=== PATIENT | male | born 1950 | race Caucasian/White ===

== ENCOUNTER 2023-12-24 05:30 | Emergency (ER) | payer MEDICARE, SELFPAY ==
--- NOTE | 2023-12-24 05:36 | ED.UPPEXIN ---
HPI - Extremity Injury (Upper) General Chief Complaint: Fall Stated Complaint: left wrist injury Time Seen by Provider: 12/24/23 05:30 History of Present Illness HPI narrative: 73-year-old male presents for evaluation of left wrist pain and swelling. Last night he was on a ladder approximately 10 ft up when he slipped and fell. He states he did hit his head but did not lose consciousness and is not on blood thinners. He was primarily concerned with his wrist and wants to see if it is sprained versus broken. Exam Narrative Exam Narrative: Const: Awake, alert, no acute distress, nontoxic appearing MSK: Swelling and bruising dorsum of left wrist, full range of motion, neurovascularly intact Skin: Warm, Dry, intact, no rashes Neuro: AO x3, CN II-XII grossly intact, moves all extremities Initial Vital Signs Initial Vital Signs: Vital Signs Temperature 98.0 F 12/24/23 05:38 Pulse Rate 74 12/24/23 05:38 Respiratory Rate 17 12/24/23 05:38 Blood Pressure 131/60 12/24/23 05:38 Pulse Oximetry 98 12/24/23 05:38 Oxygen Delivery Method Room Air 12/24/23 05:38 Course Orders Ordered: ED Orders 12/24/23 05:37 CT head/brain wo con Stat XR wrist LT min 3V Stat Vital Signs Vital signs: Vital Signs - 8 hr 12/24/23 05:38 Temperature 98.0 F Pulse Rate 74 Respiratory Rate 17 Blood Pressure 131/60 Pulse Oximetry 98 Oxygen Delivery Method Room Air MDM - Extremity Injury (Upper) Differential Diagnosis Differential diagnosis: Likely sprain and strain of wrist, fracture of wrist and finger sprain MDM Narrative Medical decision making narrative: Patient presenting primarily for evaluation of left wrist injury. It was appear to be swollen and bruised, but he is full range of motion and intact sensation with palpable pulses. Since patient's age is over 65 and he fell a significant amount we will order CT imaging of brain. Imaging negative for acute traumatic pathology. Patient placed in wrist splint for comfort. Rice instructions counseled at bedside. Discharge Plan Departure Patient Disposition: Home Clinical Impression: Left wrist sprain Qualifiers: Encounter type: initial encounter Qualified Code(s): S63.502A - Unspecified sprain of left wrist, initial encounter Head injury Qualifiers: Encounter type: initial encounter Qualified Code(s): S09.90XA - Unspecified injury of head, initial encounter Instructions: DI for Wrist Sprain Activity Restrictions/Additional Instructions: Take Tylenol and ibuprofen as needed for pain. Apply ice as needed for comfort. Referrals: Miscellaneous,Doctor, MD [Primary Care Provider] - Stand Alone Forms: Patient Portal/API
--- NOTE | 2023-12-24 05:37 | DI.CT.S_ITS ---
PROCEDURE: CT HEAD/BRAIN WO CON INDICATIONS: fall 10 ft ladder, head injury, no thinners TECHNIQUE: Noncontrast 4.5 mm thick angled axial sections acquired from the foramen magnum to the vertex, with coronal and sagittal reformats. For radiation dose reduction, the following was used: automated exposure control, adjustment of mA and/or kV according to patient size. COMPARISON: None. FINDINGS: Image quality: Diagnostic. CSF spaces: Basal cisterns are patent. No extra-axial fluid collections. The ventricles are symmetric in size and shape. Brain: No intracranial bleeds or masses. There is cerebral volume loss for age, with resultant ventricular and sulcal prominence. There are periventricular and deep white matter chronic small vessel ischemic changes. There is intracranial internal carotid artery atherosclerosis. Skull and face: Calvarium and visualized facial bones appear intact, without suspicious lesions. Sinuses: Mild mucosal thickening in bilateral ethmoid sinuses and maxillary sinuses are seen. Bilateral mastoid air cells are well aerated. IMPRESSION: No acute intracranial pathology. Mild bilateral maxillary and ethmoid sinusitis. No significant discrepancies from preliminary reading. Dictated by: Lyle Lawrence M.D. on 12/24/2023 at 7:55 Approved by: Lyle Lawrence M.D. on 12/24/2023 at 7:56
--- NOTE | 2023-12-24 05:37 | DI.RAD.S_ITS ---
PROCEDURE: XR WRIST LT MIN 3V INDICATIONS: fall from ladder, distal wrist pain TECHNIQUE: 4 views of the wrist were acquired. COMPARISON: None. FINDINGS: Bones: No fractures or dislocations. Osteoarthritic changes are noted throughout wrist joints most notably involving 1st CMC joint and triscaphe joint. No suspicious bony lesions. Soft tissues: No suspicious soft tissue calcifications. IMPRESSION: No acute wrist fracture or dislocation. Moderate wrist joint osteoarthritis as above. No significant discrepancies from preliminary reading. Dictated by: Lyle Lawrence M.D. on 12/24/2023 at 7:54 Approved by: Lyle Lawrence M.D. on 12/24/2023 at 7:54
[2023-12-24 05:38] VITALS: BP 131/60; PULSE 74; RESP 17; TEMP 36.7; O2SAT 98; BMI 23.1
== END 2023-12-24 07:01 | disposition home or self-care (01) ==
PROVIDERS: Emergency Provider Emergency Medicine
DX: S63.502A Unspecified sprain of left wrist, initial encounter (principal); S09.90XA Unspecified injury of head, initial encounter; W11.XXXA Fall on and from ladder, initial encounter
CPT/HCPCS: 70450; 73110; 99281; 99283